=== PATIENT | male | born 1950 | race Caucasian/White ===

== ENCOUNTER 2021-01-14 18:46 | Emergency (ER) | payer OTHER ==
[2021-01-14 19:02] VITALS: PULSE 50; TEMP 98.6; BMI 29.7
[2021-01-14 19:49] LABS: BASO % 2.7 % (0-2.0); HEMATOCRIT 44.3 % (35.4-49); HEMOGLOBIN 14.9 GM/dl (11.7-16.9); LYMPH % 31.9 % (8-40); MCH 31.5 pg (25.7-33.7); MCHC 33.6 g/dl (32.0-35.9); MEAN CELL VOLUME 93.7 fl (80-96); MEAN PLT VOLUME 9.8 fl (7.5-11.1); MONO % 9.6 % (3.8-10.2); NEUT % 52.8 % (42.8-82.8); PLATELET COUNT 196 K/MM3 (134-434); RBC 4.73 M/mm3 (4.00-5.60); RDW 12.4 % (11.9-15.9); WHITE BLOOD COUNT 5.6 K/mm3 (4.0-10.8)
[2021-01-14 20:07] LABS: ALBUMIN 3.9 g/dl (3.4-5.0); BILIRUBIN,TOTAL 0.6 mg/dl (0.2-1); CALCIUM 8.9 mg/dl (8.5-10); CREATININE 0.9 mg/dl (0.55-1.3); TOT PROT 6.2 g/dl (6.4-8.2)
[2021-01-14 21:47] VITALS: BP 160/76
== END 2021-01-14 21:49 | disposition home or self-care (01) ==
LOC: FER 18:46
DX: R10.84 Generalized abdominal pain (principal)
CPT/HCPCS: 36415; 76700-TC; 80053; 81003; 83690; 85025; 87086; 99284-25

== ENCOUNTER 2021-03-17 05:12 | Day surgery (SDC) | payer OTHER ==
[2021-03-15 15:33] VITALS: BMI 28.5
[2021-03-17] MEDS ORDERED: KETAMINE HCL 200 MG/20 ML VIAL ONE (07:38)
[2021-03-17 09:30] VITALS: BP 150/48; PULSE 49; TEMP 97
== END 2021-03-17 09:52 | disposition home or self-care (01) ==
LOC: JASU-ENDO 05:12
PROVIDERS: ATTEND Internal Medicine Gastroenterology
PROC: 0DBK8ZX Excision of Ascending Colon, Via Natural or Artificial Opening Endoscopic, Diagnostic (ICD-10-PCS; 2021-03-17)
PROC: 0DBP8ZX Excision of Rectum, Via Natural or Artificial Opening Endoscopic, Diagnostic (ICD-10-PCS; 2021-03-17)
PROC: 0DBP8ZX Excision of Rectum, Via Natural or Artificial Opening Endoscopic, Diagnostic (ICD-10-PCS; 2021-03-17)
PROC: 0DB98ZX Excision of Duodenum, Via Natural or Artificial Opening Endoscopic, Diagnostic (ICD-10-PCS; 2021-03-17)
PROC: 0DB78ZX Excision of Stomach, Pylorus, Via Natural or Artificial Opening Endoscopic, Diagnostic (ICD-10-PCS; 2021-03-17)
PROC: 0DB38ZX Excision of Lower Esophagus, Via Natural or Artificial Opening Endoscopic, Diagnostic (ICD-10-PCS; 2021-03-17)
PROC: 0DBM8ZX Excision of Descending Colon, Via Natural or Artificial Opening Endoscopic, Diagnostic (ICD-10-PCS; principal; 2021-03-17 08:00)
PROC: 0DBL8ZX Excision of Transverse Colon, Via Natural or Artificial Opening Endoscopic, Diagnostic (ICD-10-PCS; 2021-03-17 08:00)
DX: D12.2 Benign neoplasm of ascending colon (principal); D12.3 Benign neoplasm of transverse colon; D12.4 Benign neoplasm of descending colon; D12.8 Benign neoplasm of rectum; K57.92 Diverticulitis of intestine, part unspecified, without perforation or abscess without bleeding; K64.8 Other hemorrhoids; K44.9 Diaphragmatic hernia without obstruction or gangrene; K21.00 Gastro-esophageal reflux disease with esophagitis, without bleeding; K29.40 Chronic atrophic gastritis without bleeding; N40.0 Benign prostatic hyperplasia without lower urinary tract symptoms; Z86.010 Personal history of colon polyps
CPT/HCPCS: 88305-TC; 88342-TC

== ENCOUNTER 2021-10-18 13:20 | Emergency (ER) | payer OTHER ==
[2021-10-18 13:30] VITALS: BP 152/88; PULSE 48; TEMP 97.9; BMI 29.0
== END 2021-10-18 14:37 | disposition home or self-care (01) ==
LOC: FER 13:20
DX: S09.90XA Unspecified injury of head, initial encounter (principal); W19.XXXA Unspecified fall, initial encounter; Y92.9 Unspecified place or not applicable
CPT/HCPCS: 70450-TC; 99284-25

== ENCOUNTER 2022-12-12 09:11 | Inpatient (IN) | payer OTHER ==
[2022-12-12 09:28] VITALS: BMI 30.5
[2022-12-12] MEDS ORDERED: SODIUM CHLORIDE 1,000 ML IV SCH (09:30)
[2022-12-12 09:51] LABS: INR 0.97 (0.83-1.09); PROTHROMBIN TIME (PATIENT) 11.2 SEC (9.7-13.0)
[2022-12-12 09:53] LABS: ACTIVATED PTT 36.6 SECONDS (25.2-36.5)
[2022-12-12 10:06] LABS: ALBUMIN 4.1 g/dl (3.4-5.0); BILIRUBIN,TOTAL 1.2 mg/dl (0.2-1); CALCIUM 8.9 mg/dl (8.5-10); CREATININE 0.8 mg/dl (0.55-1.3); TOT PROT 6.8 g/dl (6.4-8.2)
[2022-12-12 11:07] LABS: BASO % 0.2 % (0-2.0); EOS % 3.6 % (0-4.5); HEMATOCRIT 45.3 % (35.4-49); HEMOGLOBIN 15.8 GM/dL (11.7-16.9); LYMPH % 32.8 % (8-40); MCH 31.6 pg (25.7-33.7); MEAN CELL VOLUME 90.2 fl (80-96); MEAN PLT VOLUME 10.1 fl (7.5-11.1); MONO % 9.6 % (3.8-10.2); NEUT % 53.8 % (42.8-82.8); PLATELET COUNT 194 10^3/uL (134-434); RBC 5.02 M/mm3 (4.00-5.60); RDW 13.2 % (11.9-15.9)
[2022-12-12] MEDS: ATORVASTATIN CA 40 MG TABLET (FP) PO SCH ×2 (19:05→21:19)
[2022-12-12] MEDS: amLODIPine BESYLATE 5 MG TABLET (FP) PO SCH (19:05)
[2022-12-12] MEDS: ASPIRIN 81 MG CHEWABLE TABLETS PO SCH (19:05)
[2022-12-12] MEDS: CLOPIDOGREL BISULFATE 75 MG TABLET (FP) PO SCH (19:05)
[2022-12-12 19:40] VITALS: RESP 18
[2022-12-13] MEDS: amLODIPine BESYLATE 5 MG TABLET (FP) PO SCH (10:28)
[2022-12-13] MEDS: CLOPIDOGREL BISULFATE 75 MG TABLET (FP) PO SCH (10:28)
[2022-12-13] MEDS: ASPIRIN 81 MG CHEWABLE TABLETS PO SCH (10:29)
[2022-12-13 10:31] LABS: CALCIUM 8.7 mg/dl (8.5-10); CREATININE 0.9 mg/dl (0.55-1.3); PHOSPHOROUS 2.7 mg/dl (2.5-4.9)
[2022-12-13 12:19] LABS: BASO % 0.3 % (0-2.0); EOS % 3.9 % (0-4.5); HEMATOCRIT 44.7 % (35.4-49); HEMOGLOBIN 15.3 GM/dL (11.7-16.9); LYMPH % 33.1 % (8-40); MCH 31.1 pg (25.7-33.7); MCHC 34.3 g/dl (32.0-35.9); MEAN CELL VOLUME 90.8 fl (80-96); MEAN PLT VOLUME 10.4 fl (7.5-11.1); MONO % 9.8 % (3.8-10.2); NEUT % 52.9 % (42.8-82.8); PLATELET COUNT 179 10^3/uL (134-434); RBC 4.92 M/mm3 (4.00-5.60); RDW 12.8 % (11.9-15.9); WHITE BLOOD COUNT 5.2 K/mm3 (4.0-10.0)
[2022-12-13] MEDS: ATORVASTATIN CA 40 MG TABLET (FP) PO SCH (21:15)
[2022-12-14] MEDS ORDERED: amLODIPine BESYLATE 5 MG TABLET (FP) PO SCH (07:15)
[2022-12-14] MEDS: CLOPIDOGREL BISULFATE 75 MG TABLET (FP) PO SCH (09:34)
[2022-12-14] MEDS: ASPIRIN 81 MG CHEWABLE TABLETS PO SCH (09:34)
[2022-12-14 09:36] VITALS: BP 155/67; PULSE 50; TEMP 98.1
== END 2022-12-14 12:42 | disposition home or self-care (01) | DRG 66 ==
LOC: FER 09:11 → FM/S 12:58 → UNDOADMOB 12:58 → INTOOBSV 12:58 → FM/S 13:12 → OBSVTOIN 17:49
PROVIDERS: ADMIT Internal Medicine; ATTEND Internal Medicine
DX: I63.9 Cerebral infarction, unspecified (principal); R29.701 NIHSS score 1; R00.1 Bradycardia, unspecified; I10 Essential (primary) hypertension; E78.5 Hyperlipidemia, unspecified
CPT/HCPCS: 0241U-QW; 36415; 70544-TC; 70551-TC; 80048; 80053; 80061; 83036; 83735; 84100; 84443; 84484; 85025; 85610; 85730; 86850; 86900; 86901; 93005; 93306-TC; 93880-TC; 97116-GP; 97162-GP; 99285-25; G0378

== ENCOUNTER 2023-01-07 08:42 | Observation (INO) | payer OTHER ==
[2023-01-07] MEDS ORDERED: ACETAMINOPHEN 1000 MG/100 ML BAG IVPB ONE (09:01)
[2023-01-07] MEDS ORDERED: ONDANSETRON 4 MG/2 ML VIAL IVPUSH ONE (09:02)
[2023-01-07] MEDS ORDERED: ACETAMINOPHEN INJECTION 100 ML IVPB ONE (09:07)
[2023-01-07] MEDS ORDERED: ONDANSETRON 4 MG/2 ML VIAL ONE (09:07)
[2023-01-07 09:51] LABS: ALBUMIN 4.1 g/dl (3.4-5.0); BILIRUBIN,TOTAL 0.8 mg/dl (0.2-1); CALCIUM 8.8 mg/dl (8.5-10); CREATININE 0.8 mg/dl (0.55-1.3); POTASSIUM 4.3 mmol/L (3.5-5.1); TOT PROT 6.7 g/dl (6.4-8.2)
[2023-01-07 09:53] LABS: HEMATOCRIT 44.4 % (35.4-49); HEMOGLOBIN 15.4 G/dL (11.7-16.9); MCH 32.7 pg (25.7-33.7); MCHC 34.6 g/dl (32.0-35.9); MEAN CELL VOLUME 94.5 fl (80-96); MEAN PLT VOLUME 9.8 fl (7.5-11.1); PLATELET COUNT 198.1 10^3/uL (134-434)
[2023-01-07 10:08] LABS: PLATELET ESTIMATE ADEQUATE
[2023-01-07] MEDS ORDERED: SODIUM CHLORIDE 500 ML IV STA (11:35)
[2023-01-07 16:13] VITALS: RESP 18; BMI 31.8
[2023-01-07] MEDS ORDERED: ACETAMINOPHEN 1000 MG/100 ML BAG IVPB PRN (20:25)
[2023-01-07] MEDS ORDERED: DOCUSATE SODIUM 100 MG CAPSULE (FP) PO SCH (22:00)
[2023-01-08] MEDS: oxyCODONE HCL 5 MG TABLET PO PRN ×2 (08:27→14:21)
[2023-01-08 08:31] LABS: CALCIUM 8.3 mg/dl (8.5-10); CREATININE 0.6 mg/dl (0.55-1.3)
[2023-01-08 09:54] LABS: BASO % 0.4 % (0-2.0); EOS % 1.2 % (0-4.5); HEMATOCRIT 40.1 % (35.4-49); HEMOGLOBIN 13.8 GM/dL (11.7-16.9); LYMPH % 22.3 % (8-40); MCH 31.1 pg (25.7-33.7); MCHC 34.5 g/dl (32.0-35.9); MEAN CELL VOLUME 90.3 fl (80-96); MEAN PLT VOLUME 9.8 fl (7.5-11.1); MONO % 11.8 % (3.8-10.2); NEUT % 64.3 % (42.8-82.8); PLATELET COUNT 168 10^3/uL (134-434); RBC 4.44 M/mm3 (4.00-5.60); RDW 12.8 % (11.9-15.9); WHITE BLOOD COUNT 7.1 K/mm3 (4.0-10.0)
[2023-01-08] MEDS ORDERED: ASPIRIN COATED 81 MG TABLET.EC PO SCH (10:00)
[2023-01-08] MEDS ORDERED: amLODIPine BESYLATE 10 MG TABLET (FP) PO SCH (10:00)
[2023-01-08] MEDS ORDERED: TIMOLOL 0.5% OPHTHALMIC SOL 5 ML BOTTLE OU SCH (10:00)
[2023-01-08] MEDS ORDERED: PATIENT'S OWN MEDICATION (NON-FORMULARY) (Dorzolamide Hcl/Timolol Maleat [Cosopt Eye Drops OU SCH (10:00)
[2023-01-08] MEDS ORDERED: DORZOLAMIDE 2% HCL OPHTHALMIC SOLUTION 10 ML BOTTLE OU SCH (10:00)
[2023-01-08 14:17] VITALS: BP 149/69; PULSE 69; TEMP 98.9
[2023-01-08] MEDS ORDERED: ATORVASTATIN CA 40 MG TABLET (FP) PO SCH (22:00)
== END 2023-01-08 14:29 | disposition home or self-care (01) ==
LOC: FER 08:42 → UNDOADMOB 15:09 → FM/S 15:09
PROVIDERS: ADMIT Internal Medicine; ATTEND Internal Medicine
PROC: 2W3CX1Z Immobilization of Right Lower Arm using Splint (ICD-10-PCS; principal; 2023-01-07)
PROC: 3E033NZ Introduction of Analgesics, Hypnotics, Sedatives into Peripheral Vein, Percutaneous Approach (ICD-10-PCS; 2023-01-07)
PROC: 3E0337Z Introduction of Electrolytic and Water Balance Substance into Peripheral Vein, Percutaneous Approach (ICD-10-PCS; 2023-01-07)
DX: S52.514A Nondisplaced fracture of right radial styloid process, initial encounter for closed fracture (principal); S52.041A Displaced fracture of coronoid process of right ulna, initial encounter for closed fracture; S09.90XA Unspecified injury of head, initial encounter; W10.8XXA Fall (on) (from) other stairs and steps, initial encounter; Z91.81 History of falling; Y93.89 Activity, other specified; Y92.008 Other place in unspecified non-institutional (private) residence as the place of occurrence of the external cause; M54.2 Cervicalgia; I10 Essential (primary) hypertension; E78.5 Hyperlipidemia, unspecified; Z86.73 Personal history of transient ischemic attack (TIA), and cerebral infarction without residual deficits; Z79.82 Long term (current) use of aspirin; Z79.02 Long term (current) use of antithrombotics/antiplatelets
CPT/HCPCS: 29126; 36415; 70450-TC; 71101-TC-RT-FY; 72125-TC; 73070-TC-RT-FY; 73110-TC-RT-FY; 73130-TC-RT-FY; 73200-TC-RT; 80048; 80053; 84484; 85025; 85027; 93005; 96361; 96374; 96375; 97116-GP; 97161-GP; 99285-25; C9803-CS; G0378; U0003; U0005